=== PATIENT | male | born 1970 | race Two or more races ===

== ENCOUNTER 2017-04-23 02:58 | Emergency (ER) | payer SELFPAY ==
[~2017-04-23] VITALS: Ht 167.6 cm; Wt 81.6 kg
--- NOTE | ~2017-04-23 | CR181 ---
[facility] A Service of [facility] & [facility] RADIOLOGY TEXT RESULTS PATIENT: JORGE HERNANDEZ LOCATION: [facility] : 74 UNIT #: [id number] AGE: [address]: Roque Huggins SEX: M ORDER DR: [id number] [facility] [address] [place], [place] [address] [id number] MR#: [id number] #: [id number] NAME: JORGE HERNANDEZ : 1970 SEX: M STUDY DATE/TIME: 04/23/2017 3:30 UNIT: [facility] ROOM: STUDY DESCRIPTION: CR Lumbar Spine 2 or 3 Views Attending Physician: Roque Huggins P.A.-C. Ordering Physician: Roque Huggins P.A.-C. Primary Care Physician: Primary Care Physician No MEDICAL IMAGING REPORT This report is preliminary unless electronic signature is present EXAM Lumbar spine, 04/23/2017 HISTORY 47-year-old male in the ED complaining of 3-day history of back pain. TECHNIQUE Three-view lumbar spine series FINDINGS No fracture or other acute osseous abnormality is demonstrated. 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 Remaining lumbar disc spaces appear normal. IMPRESSION 1. No acute osseous abnormality. 2. 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 Dictated by... Willie Jamison M.D. THIS IS AN ELECTRONICALLY VERIFIED REPORT Willie Jamison M.D. at 04/23/2017 3:54 PM [place] TD: 04/23/2017 12:40 JOB #: [id number] MEDICAL IMAGING REPORT Page 1 of 1 COPY
[~2017-04-23 02:58] MED LIST: ROBAXIN PO; VOLTAREN75 MG PO
[2017-04-23 04:22] LABS: URINE SOURCE CLEAN CATCH
[2017-04-23 04:35] LABS: URINE APPEARANCE CLEAR; URINE BILIRUBIN NEG (NEG); URINE BLOOD NEG (NEG); URINE COLOR YELLOW; URINE GLUCOSE NEG (NEG); URINE KETONE NEG (NEG); URINE LEUKOCYTE ESTERASE NEG (NEG); URINE NITRATE NEG (NEG); URINE PROTEIN NEG (NEG); URINE SPECIFIC GRAVITY 1.018 (1.003-1.035); URINE UROBILINOGEN 0.2 MG/DL (NEG)
[2017-04-23 04:42] LABS: CULTURE INDICATED? NO
== END 2017-04-23 05:01 | disposition home or self-care (01) ==
LOC: CED 02:58
PROVIDERS: Physician Assistant
DX: M54.5 Low back pain (principal); F17.210 Nicotine dependence, cigarettes, uncomplicated
CPT/HCPCS: 72100; 81003; 96372; 99284; J1885